=== PATIENT | female | born 1965 | race Caucasian/White ===

== ENCOUNTER 2019-02-17 05:40 | Day surgery (SDC) | payer OTHER ==
[2019-02-17] MEDS ORDERED: FENTAnyl 50 MCG/ML VIAL (12:57)
[2019-02-17] MEDS ORDERED: MIDAZOLAM 1 MG/ML 2 ML INJ ×2 (12:57)
== END 2019-02-17 14:57 | disposition home or self-care (01) ==
LOC: GIL 05:40
DX: K92.1 Melena (principal); D12.5 Benign neoplasm of sigmoid colon; K64.8 Other hemorrhoids
CPT/HCPCS: 45380; 88305